=== PATIENT | male | born 1955 | race Caucasian/White ===

== ENCOUNTER 2020-04-17 06:49 | Outpatient (CLI) | payer MEDICARE, OTHER ==
--- NOTE | 2020-04-17 08:12 | ULT ---
US Abdominal Aorta: 04/17/2020 12:00 AM CLINICAL HISTORY: AAA screening. STUDY: Limited abdominal ultrasound of the aorta. TECHNIQUE: A limited ultrasound of the abdominal aorta was performed. Spectral analysis of the Dopple r waveform was performed. COMPARISON: None. FINDINGS: The aorta is normal in caliber without evidence of aneurysmal dilatation and measures 1.8 cm in great est dimension. The common iliac arteries are normal in caliber. IMPRESSION: No evidence of abdominal aortic aneurysm.
--- NOTE | 2020-04-17 08:20 | ULT ---
BILATERAL CAROTID DUPLEX ULTRASOUND: HISTORY: Bilateral carotid bruit TECHNIQUE: Grayscale, color-flow and spectral Doppler ultrasound imaging of the extracranial carotid artery syst ems and vertebral arteries was performed bilaterally. FINDINGS: Atherosclerotic disease in bilateral carotid bifurcations. The peak systolic velocity in the right ICA measures 91.1 cm/s. The peak systolic velocity in the ri ght CCA measures 46.5 cm/s. The peak systolic velocity in the left ICA measures 190 cm/s. The peak systolic velocity in the le ft CCA measures 99.4 cm/s. The right IC/CC ration is2.0. The left IC/CC ratio is 1.9. Vertebral flow: antegrade, bilaterally. . IMPRESSION: Moderate stenosis involving the left internal card artery. Further evaluation with CT ang iogram of the neck is recommended.
== END 2020-04-17 06:50 | disposition home or self-care (01) ==
LOC: BICULT 06:49
PROVIDERS: ATTEND Specialist
DX: R09.89 Other specified symptoms and signs involving the circulatory and respiratory systems (principal); I71.4 Abdominal aortic aneurysm, without rupture; I65.21 Occlusion and stenosis of right carotid artery
CPT/HCPCS: 76775; 93880

== ENCOUNTER 2020-04-30 10:45 | Outpatient (CLI) | payer MEDICARE, OTHER ==
[~2020-04-30 10:45] MED LIST: Iopamidol-370 76% 500 ML 1 ML ONE
--- NOTE | 2020-04-30 11:59 | CT ---
CT angiogram of the neck: 04/30/2020 COMPARISON: None HISTORY: Carotid stenosis TECHNIQUE: Axial CT imaging at 2 mm intervals from the lung apices through the skull base with IV con trast. Coronal and sagittal 3-D reformatted imaging obtained. FINDINGS: The imaged lung apices appear grossly unremarkable. There is mild polypoid mucosal thickening involving the superior aspect of the right maxillary sinus. The retroantral and parapharyngeal fat appears grossly unremarkable bilaterally. The parotid glands and submandibular glands demonstrate normal symmetric CT appearance. The palantine tonsils, the epiglottis and preepiglottic fat, the hyoid bone, thyroid cartilage, and the cricoid cartilage appear grossly unremarkable. The thyroid gland is grossly unremarkable. The visualized lung apices are within normal limits. There is atherosclerotic calcification at the level of the aortic arch as well as involving the origi n of the innominate artery and the left subclavian artery. There is partially calcified plaque at the origin of the left vertebral artery with a mild degree of stenosis at the origin of the left vertebral artery. On the basis of partially calcified plaque there is at least moderate if not severe stenosis at the origin of the right vertebral artery. Bilateral vertebral arteries appear otherwise unremarkable. Evaluation of the proximal aspect of the right common carotid artery is slightly limited secondary to streak artifact from adjacent venous contrast media. On the basis of NASCET criteria, no evidence for hemodynamically significant stenosis is seen involving the right common carotid artery. There is mild partially calcified plaque involving the distal right common carotid artery and the pro ximal right internal carotid artery. On the basis of NASCET criteria, no hemodynamically significant stenosis is appreciated involving the right internal carotid artery. There is prominent calcified plaque involving the distal left common carotid artery. This extends int o the proximal most aspect of the left internal carotid artery. There is a focal area of stenosis involving the origin of the left internal carotid artery. It is difficult to accurately quantify seco ndary to the focal area of prominent atherosclerotic calcification. There is calcified plaque at the origin of the left internal carotid artery measures 7 mm in craniocaudal dimension. I would estim ate the degree of stenosis at the origin of the left internal carotid artery to be in the 70% range. Further distally, the left internal carotid artery demonstrates no stenosis. There is atherosclerotic calcification involving the cavernous carotid arteries. There is no lymphadenopathy noted within the neck. Review of the osseous structures demonstrates mult ilevel cervical spine degenerative change with disc space narrowing, degenerative endplate sclerosis, and osteophyte formation at C3-4, C4-5, C5-6, and C6-7. IMPRESSION: Hemodynamically significant stenosis at the origin of the left internal carotid artery as detailed above. There is stenosis at the origin of bilateral vertebral arteries, right greater than left.
== END 2020-04-30 10:46 | disposition home or self-care (01) ==
LOC: BICCT 10:45
PROVIDERS: ATTEND Specialist
DX: I65.22 Occlusion and stenosis of left carotid artery (principal); I65.03 Occlusion and stenosis of bilateral vertebral arteries
CPT/HCPCS: 70498; 82565; Q9967

== ENCOUNTER 2020-12-10 08:43 | Outpatient (CLI) | payer MEDICARE, OTHER ==
[2020-12-10 10:00] LABS: Hemoglobin 15.4 g/dL (13.5-17.5); Mean Corpuscular HGB CONC 32.6 g/dL (32.0-36.0); Mean Platelet Volume 9.9 fl (7.4-10.4); Platelet Count 264 10x3/uL (150-450); RBC Distribution Width 13.1 % (11.5-14.5); Red Blood Cell (RBC) Count 4.97 10x6/uL (4.32-5.72); White Blood Cell (WBC) Count 9.5 10x3/uL (3.5-10.5)
[2020-12-10 10:36] LABS: Anion Gap 17 mmol/L (10-20); BUN (Urea Nitrogen) 29 mg/dL (8.4-25.7); Calc. Creatinine Clearance 0 mL/min (70-130); Calcium 9.7 mg/dL (7.8-10.44); Carbon Dioxide 22 mmol/L (23-31); Chloride 107 mmol/L (98-107); Glucose 106 mg/dL (80-115); Potassium 4.6 mmol/L (3.5-5.1); Sodium 141 mmol/L (136-145)
[2020-12-10 19:29] LABS: SARS-CoV-2 PCR by NAA Not Detected (NotDetected)
== END 2020-12-10 08:44 | disposition home or self-care (01) ==
LOC: LABBT 08:43
PROVIDERS: ATTEND Thoracic Surgery (Cardiothoracic Vascular Surgery)
DX: Z01.812 Encounter for preprocedural laboratory examination (principal); Z20.822 Contact with and (suspected) exposure to COVID-19
CPT/HCPCS: 80048; 85027; U0003; U0005

== ENCOUNTER 2020-12-10 08:45 | Inpatient (IN) | payer MEDICARE ==
[2020-12-12 15:03] VITALS: BMI 31.0
[2020-12-15] MEDS ORDERED: EPINEPHrine 1 MG/ML AMP ONE (06:24)
[2020-12-15] MEDS ORDERED: Bupivacaine PF 0.5% 30 ML VIAL ONE (06:24)
[2020-12-15] MEDS ORDERED: Heparin 5,000 UNITS/ML VIAL ONE (06:24)
[2020-12-15] MEDS ORDERED: Protamine Sulfate 50 MG/5 ML VIAL ONE (06:31)
[2020-12-15] MEDS ORDERED: Phenylephrine 10 MG/ML VIAL ONE (06:51)
[2020-12-15] MEDS ORDERED: Fentanyl 100 MCG/2 ML VIAL ONE (06:51)
[2020-12-15] MEDS ORDERED: Ondansetron ODT 4 MG TAB ONE (07:08)
[2020-12-15] MEDS ORDERED: Levofloxacin 500 mg/D5W 100 ml Premix Bag ONE (07:15)
[2020-12-15] MEDS ORDERED: Dexamethasone 20 MG/5 ML VIAL ONE (07:46)
[2020-12-15] MEDS ORDERED: Lidocaine 1% PF 5 ML VIAL ONE (07:46)
[2020-12-15] MEDS ORDERED: PROPOFOL 200 MG/20 ML VIAL ONE (07:46)
[2020-12-15] MEDS ORDERED: Ondansetron PF 4 MG/2 ML Vial ONE (07:46)
[2020-12-15] MEDS ORDERED: Glycopyrrolate 0.2 MG/ML 5 ML SYRINGE ONE (07:46)
[2020-12-15] MEDS ORDERED: Vecuronium 10 MG VIAL ONE (07:46)
[2020-12-15] MEDS: Phenylephrine 40 MG in Sodium Chloride 0.9% 250 ML 250 ML IVPB PRN ×2 (10:10→20:30)
[2020-12-15] MEDS ORDERED: Acetaminophen 325 MG TAB PO PRN (10:12)
[2020-12-15] MEDS ORDERED: Nitroglycerin 50 MG/250 ML BOT 250 ML IVPB PRN (10:12)
[2020-12-15] MEDS ORDERED: Fentanyl 100 MCG/2 ML VIAL SLOW IVP PRN ×2 (10:12)
[2020-12-15] MEDS ORDERED: HYDROcodone/Acetaminophen 5/325 mg Tablet PO PRN ×2 (10:12)
[2020-12-15] MEDS ORDERED: Promethazine HCl 25 MG/ML VIAL IM PRN (10:12)
[2020-12-15] MEDS ORDERED: Ondansetron PF 4 MG/2 ML Vial IVP PRN (10:12)
[2020-12-15] MEDS ORDERED: PHENYLEPHRINE-NS 100 MCG/ML 10 ML SYRINGE ONE (10:16)
[2020-12-15] MEDS ORDERED: Acetaminophen 325 MG TAB ONE (11:57)
[2020-12-15] MEDS: Sodium Chloride 0.9% 1,000 ML IV SCH (12:00)
[2020-12-15] MEDS ORDERED: Atorvastatin Calcium 20 MG TAB PO SCH (21:00)
[2020-12-16] MEDS: Sodium Chloride 0.9% 1,000 ML IV SCH (06:35)
[2020-12-16] MEDS ORDERED: Sodium Chloride 0.9% 10 ML ONE (06:47)
[2020-12-16] MEDS ORDERED: Aspirin 81 mg Enteric Coated Tablet ONE (07:52)
[2020-12-16] MEDS ORDERED: Aspirin Chewable 81 MG TAB PO SCH (09:00)
[2020-12-16] MEDS ORDERED: Amlodipine 10 MG TAB PO SCH (09:00)
[2020-12-16 09:23] VITALS: TEMP 98.6
== END 2020-12-16 09:50 | disposition home or self-care (01) | DRG 39 ==
LOC: SURG A 12-15 05:44
PROVIDERS: ADMIT Thoracic Surgery (Cardiothoracic Vascular Surgery); ATTEND Thoracic Surgery (Cardiothoracic Vascular Surgery)
PROC: 03CJ0ZZ Extirpation of Matter from Left Common Carotid Artery, Open Approach (ICD-10-PCS; principal; 2020-12-15)
PROC: 03UJ0KZ Supplement Left Common Carotid Artery with Nonautologous Tissue Substitute, Open Approach (ICD-10-PCS; 2020-12-15)
DX: I65.22 Occlusion and stenosis of left carotid artery (principal); Z20.822 Contact with and (suspected) exposure to COVID-19; I10 Essential (primary) hypertension; E78.5 Hyperlipidemia, unspecified; E66.9 Obesity, unspecified; R49.0 Dysphonia; Z68.33 Body mass index [BMI] 33.0-33.9, adult; Z88.0 Allergy status to penicillin; Z79.82 Long term (current) use of aspirin; Z79.899 Other long term (current) drug therapy
CPT/HCPCS: 36416; 76000; J0171; J1100; J1642; J1644; J1956; J2370; J2405; J2704; J2720; J3010; J7050; Q0162; S0020

== ENCOUNTER 2020-12-30 14:03 | Outpatient (CLI) | payer MEDICARE | END 2020-12-30 14:04 | disposition home or self-care (01) | LOC: CT 14:03 | PROVIDERS: ATTEND Thoracic Surgery (Cardiothoracic Vascular Surgery) | DX: R22.42 Localized swelling, mass and lump, left lower limb (principal); I70.8 Atherosclerosis of other arteries; N32.89 Other specified disorders of bladder | CPT/HCPCS: 75635; 82565 ==

== ENCOUNTER 2021-01-09 11:15 | Outpatient (CLI) | payer MEDICARE, OTHER ==
[2021-01-09 12:39] LABS: #Basophils 0.1 10x3/uL (0.0-0.2); #Eosinphils 1.2 10x3/uL (0.0-0.5); #Monocytes 0.8 10x3/uL (0.0-1.1); #Neutrophils 5.4 10x3/uL (1.5-8.4); %Eosinophils 11.6 % (0.0-6.0); %Lymphocytes 25.8 % (18.0-47.0); %Monocytes 7.7 % (0.0-10.0); %Neutrophils 53.3 % (40.0-75.0); Hemoglobin 14.6 g/dL (13.5-17.5); Mean Corpuscular Hemoglobin 31.2 pg (27.0-33.0); Mean Corpuscular Volume 94.4 fl (81.2-95.1); Mean Platelet Volume 10.5 fl (7.4-10.4); Platelet Count 215 10x3/uL (150-450); RBC Distribution Width 12.7 % (11.5-14.5); Red Blood Cell (RBC) Count 4.68 10x6/uL (4.32-5.72); White Blood Cell (WBC) Count 10.1 10x3/uL (3.5-10.5)
[2021-01-09 12:57] LABS: ALT (SGPT) 25 U/L (8-55); AST (SGOT) 20 U/L (5-34); Albumin 4.1 g/dL (3.4-4.8); Alkaline Phosphatase 55 U/L (40-110); Anion Gap 16 mmol/L (10-20); BUN (Urea Nitrogen) 14 mg/dL (8.4-25.7); Bilirubin, Total 0.4 mg/dL (0.2-1.2); Calc. Creatinine Clearance 0 mL/min (70-130); Calcium 9.9 mg/dL (7.8-10.44); Carbon Dioxide 21 mmol/L (23-31); Chloride 108 mmol/L (98-107); Globulin 2.9 g/dL (2.4-3.5); Glucose 103 mg/dL (80-115); Potassium 4.6 mmol/L (3.5-5.1); Sodium 140 mmol/L (136-145)
[2021-01-10 13:13] LABS: SARS-CoV-2 PCR by NAA Not Detected (NotDetected)
== END 2021-01-09 11:16 | disposition home or self-care (01) ==
LOC: LABBT 11:15
PROVIDERS: ATTEND Surgery
DX: Z01.818 Encounter for other preprocedural examination (principal); K45.8 Other specified abdominal hernia without obstruction or gangrene; Z20.822 Contact with and (suspected) exposure to COVID-19
CPT/HCPCS: 80053; 85025; U0003; U0005

== ENCOUNTER 2021-01-14 07:19 | Day surgery (SDC) | payer MEDICARE ==
[2021-01-13 10:53] VITALS: BMI 31.7
[2021-01-14] MEDS ORDERED: Levofloxacin 500 mg/D5W 100 ml Premix Bag ONE (08:16)
[2021-01-14] MEDS ORDERED: Fentanyl 250 MCG/5 ML VIAL ONE (09:01)
[2021-01-14] MEDS ORDERED: Rocuronium Bromide 10 MG/ML (10ML VIAL) ONE (09:10)
[2021-01-14] MEDS ORDERED: Ondansetron PF 4 MG/2 ML Vial ONE (09:10)
[2021-01-14] MEDS ORDERED: PHENYLEPHRINE-NS 100 MCG/ML 10 ML SYRINGE ONE (09:10)
[2021-01-14] MEDS ORDERED: ePHEDrine 50 MG/ML VIAL ONE (09:10)
[2021-01-14] MEDS ORDERED: Dexamethasone 20 MG/5 ML VIAL ONE (09:10)
[2021-01-14] MEDS ORDERED: PROPOFOL 200 MG/20 ML VIAL ONE (09:10)
[2021-01-14] MEDS ORDERED: Lidocaine 1% PF 5 ML VIAL ONE (09:10)
[2021-01-14] MEDS ORDERED: Lidocaine 1% w/Epinephrine 1:100K 20 ML VIAL ONE (09:22)
[2021-01-14] MEDS ORDERED: Bupivacaine 0.25% HCL 30 ML VIAL ONE (09:22)
[2021-01-14] MEDS ORDERED: HYDROcodone/Acetaminophen 5/325 mg Tablet ONE (13:34)
== END 2021-01-14 14:28 | disposition home or self-care (01) ==
LOC: SDC 07:19
PROVIDERS: ATTEND Surgery
PROC: 0JBM0ZZ Excision of Left Upper Leg Subcutaneous Tissue and Fascia, Open Approach (ICD-10-PCS; principal; 2021-01-14)
PROC: 0WUF0JZ Supplement Abdominal Wall with Synthetic Substitute, Open Approach (ICD-10-PCS; 2021-01-14)
DX: K42.9 Umbilical hernia without obstruction or gangrene (principal); D17.79 Benign lipomatous neoplasm of other sites; E78.00 Pure hypercholesterolemia, unspecified; Z79.899 Other long term (current) drug therapy; Z88.0 Allergy status to penicillin
CPT/HCPCS: 88304; C1781; J1100; J1956; J2405; J2704; J3010; J3490; S0020